=== PATIENT | female | born 1960 | race American Indian/Alaskan Native ===

== ENCOUNTER 2016-05-13 05:22 | Emergency (ER) | payer MEDICARE ==
[2016-05-13 05:32] VITALS: BP 156/100
[2016-05-13] MEDS ORDERED: NORCO 5/325 PO ONE (07:47)
--- NOTE | 2016-05-13 07:47 | Emergency Department Report ---
ED ENT HPI - General Chief complaint: Dental/Oral Stated complaint: TOOTH PAIN Time Seen by Provider: 05/13/16 07:47 Source: patient Mode of arrival: Ambulatory Limitations: No Limitations - History of Present Illness Initial comments: The patient reports she was seen and treated at the dentist for toothache that started 5 days ago, however symptoms continue to persist despite medication regimen complaint: tooth pain Onset/Timin -: days(s) Location: tooth # (18) Severity: severe Severity scale (0 -10): 10 Quality: aching Consistency: constant Improves with: none Worsens with: swallowing, movement Context-Epistaxis: other (none) Context- Dental: history of dental caries, poor dental care Context- Ear: other (none) Associated Symptoms: toothache - Related Data Previous Rx's Medication Instructions Recorded Last Taken Type Azithromycin [Zithromax Z-RE] 250 mg PO DAILY #6 tablet 05/13/16 Unknown Rx HYDROcodone/APAP 5-325 [[place] 1 each PO Q6HR PRN #10 tablet 05/13/16 Unknown Rx 5/325] Allergies Allergy/AdvReac Type Severity Reaction Status Date / Time iodine Allergy Unknown Verified 05/13/16 05:28 Penicillins Allergy Hives Verified 05/13/16 05:28 ED Dental HPI - General Chief complaint: Dental/Oral Stated complaint: TOOTH PAIN Source: patient Mode of arrival: Ambulatory Limitations: No Limitations - Related Data Previous Rx's Medication Instructions Recorded Last Taken Type Azithromycin [Zithromax Z-RE] 250 mg PO DAILY #6 tablet 05/13/16 Unknown Rx HYDROcodone/APAP 5-325 [[place] 1 each PO Q6HR PRN #10 tablet 05/13/16 Unknown Rx 5/325] Allergies Allergy/AdvReac Type Severity Reaction Status Date / Time iodine Allergy Unknown Verified 05/13/16 05:28 Penicillins Allergy Hives Verified 05/13/16 05:28 ED Review of Systems ROS: Stated complaint: TOOTH PAIN Other details as noted in HPI Constitutional: denies: chills, diaphoresis, fever, malaise, weakness Eyes: denies: eye pain, eye discharge, vision change ENT: dental pain. denies: ear pain, throat pain, hearing loss, epistaxis, congestion Respiratory: denies: cough, orthopnea, shortness of breath, SOB with exertion, SOB at rest, stridor, wheezing Cardiovascular: denies: chest pain, palpitations, dyspnea on exertion, orthopnea , edema, syncope, paroxysmal nocturnal dyspnea Skin: denies: rash, lesions, change in color, change in hair/nails, pruritus ED Past Medical Hx - Medications Home Medications: Home Medications Medication Instructions Recorded Confirmed Last Taken Type Azithromycin [Zithromax Z-RE] 250 mg PO DAILY #6 tablet 05/13/16 Unknown Rx HYDROcodone/APAP 5-325 [[place] 1 each PO Q6HR PRN #10 tablet 05/13/16 Unknown Rx 5/325] ED Physical Exam - General Limitations: No Limitations General appearance: alert, in no apparent distress - Head Head exam: Present: atraumatic, normocephalic - Eye Eye exam: Present: normal appearance, PERRL, EOMI Pupils: Present: normal accommodation - ENT ENT exam: Present: mucous membranes moist, TM's normal bilaterally, normal external ear exam. Absent: mucous membranes dry - Expanded ENT Exam Expanded Ear exam: Present: normal external inspection. Absent: auricular hematoma, auricular trauma Mouth exam: Present: normal external inspection, tongue normal. Absent: drooling, trismus, muffled voice, tongue elevation, laceration Teeth exam: Present: dental caries (16, 17 & 18), dental tenderness # (17). Absent: fractured tooth #, gingival enlargement Throat exam: Positive: normal inspection. Negative: tonsillar erythema, tonsillomegaly, tonsillar exudate, R peritonsillar mass, L peritonsillar mass - Neck Neck exam: Present: normal inspection, tenderness (left cervical lymph node), full ROM. Absent: meningismus, lymphadenopathy, thyromegaly - Respiratory Respiratory exam: Present: normal lung sounds bilaterally. Absent: respiratory distress, wheezes, rales, rhonchi, stridor, chest wall tenderness, accessory muscle use, decreased breath sounds, prolonged expiratory - Cardiovascular Cardiovascular Exam: Present: regular rate, normal rhythm, normal heart sounds. Absent: systolic murmur, diastolic murmur, rubs, gallop, clicks, JVD, S3, S4 - Neurological Exam Neurological exam: Present: alert, oriented X3, CN II-XII intact, normal gait, reflexes normal. Absent: motor sensory deficit ED Course Vital Signs 05/13/16 05:29 Temperature 97.6 F Pulse Rate 66 Respiratory 22 Rate Blood Pressure 156/100 O2 Sat by Pulse 100 Oximetry - Reevaluation(s) Reevaluation #1: 05/13/16 07:54 pain medication ordered ED Medical Decision Making - Lab Data Vital Signs 05/13/16 05:29 Temperature 97.6 F Pulse Rate 66 Respiratory 22 Rate Blood Pressure 156/100 O2 Sat by Pulse 100 Oximetry - Medical Decision Making During the course of the ED, pain medication was ordered. Patient was sent home with a prescription for [place] and Azithromycin, instructed to keep scheduled follow-up dental appointment, she verbalize understanding - Differential Diagnosis Dental pain secondary to caries, Dental abscess Critical care attestation.: If time is entered above; I have spent that time in minutes in the direct care of this critically ill patient, excluding procedure time. ED Disposition Clinical Impression: Pain due to dental caries Disposition: DISCHARGED TO HOME OR SELFCARE Is pt being admited?: No Does the pt Need Aspirin: No Condition: Stable Instructions: Dental Caries (ED) Additional Instructions: Take medication as directed. No drinking and driving while taking pain medication. Follow-up with your scheduled dental appointment Prescriptions: HYDROcodone/APAP 5-325 [[place] 5/325] 1 each PO Q6HR PRN #10 tablet PRN Reason: Pain Azithromycin [Zithromax Z-RE] 250 mg PO DAILY #6 tablet Forms: Work/School Release Form(ED), Accompanied Note Time of Disposition: 07:58
== END 2016-05-13 08:11 | disposition home or self-care (01) ==
LOC: ED 05:22
DX: K02.9 Dental caries, unspecified (principal); Z88.0 Allergy status to penicillin; Z88.8 Allergy status to other drugs, medicaments and biological substances
CPT/HCPCS: 99282